=== PATIENT | male | born 1995 | race Hispanic/Latino ===

== ENCOUNTER 2019-03-18 21:24 | Emergency (ER) | payer SELFPAY ==
[2019-03-18 21:42] VITALS: BP 142/92; PULSE 120; RESP 18; TEMP 98.3; O2SAT 96
[2019-03-18] MEDS ORDERED: Lidocaine 2% Inj (20ml) INFIL ONE (21:43)
[2019-03-18] MEDS ORDERED: Lidocaine 2% w Epi 1:100,000 Inj IJ ONE (21:47)
[2019-03-18] MEDS ORDERED: Lidocaine 1% Inj (20ml) INFIL ONE (21:48)
--- NOTE | 2019-03-18 21:48 | ED PDOC ---
Upper Extremity Pain/Injury Time Seen by Provider: 03/18/19 21:42 Chief Complaint (Nursing): Finger,Hand,&Wrist Chief Complaint (Provider): Finger,Hand,&Wrist History Per: Patient History/Exam Limitations: no limitations Onset/Duration Of Symptoms: Mins Current Symptoms Are (Timing): Still Present Additional Complaint(s): 23 y/o male with no significant PMHx presents to the ED for evaluation of a right hand laceration, onset prior to arrival. Patient reports he was washing dishes when a jagged piece of glass cut his right second digit. Patient notes he was unable to control bleeding. Patient states he is right hand dominant. PMD: no provider Tetanus vaccination is greater than 5 years. Past Medical History Reviewed: Historical Data, Nursing Documentation, Vital Signs Vital Signs: Last Vital Signs Temp 98.3 F 03/18/19 21:36 Pulse 120 H 03/18/19 21:36 Resp 18 03/18/19 21:36 BP 142/92 H 03/18/19 21:36 Pulse Ox 96 03/18/19 21:36 Primary Care Provider: FAMILY PROVIDER,NO - Medical History PMH: No Chronic Diseases - Surgical History Surgical History: No Surg Hx - Family History Family History: States: No Known Family Hx - Allergies Allergies/Adverse Reactions: Allergies Allergy/AdvReac Type Severity Reaction Status Date / Time No Known Allergies Allergy Verified 03/18/19 21:38 Review of Systems ROS Statement: Except As Marked, All Systems Reviewed And Found Negative Musculoskeletal: Positive for: Hand Pain Physical Exam - Reviewed Nursing Documentation Reviewed: Yes Vital Signs Reviewed: Yes - Physical Exam Appears: Positive for: No Acute Distress Extremity: Positive for: Other (2 cm laceration on the volar surface distal phalanx. ) - ECG O2 Sat by Pulse Oximetry: 96 (RA) Pulse Ox Interpretation: Normal Procedures - Laceration/Wound Repair Right Finger Wound Length (cm): 2 Wound's Depth, Shape: linear Wound Explored: clean Anesthesia: 1% Lidocaine Wound Repaired With: Sutures Suture Size/Type: 5:0, proline Number of Sutures: 3 Wound Complexity: Simple Disposition - Clinical Impression Clinical Impression: Finger laceration - Patient ED Disposition Is Patient to be Admitted: No - Disposition Disposition: Routine/Home Disposition Time: 22:33 Condition: FAIR Additional Instructions: return in 7 to 10 days for removal of sutures. Instructions: Laceration Repair
[2019-03-18] MEDS ORDERED: Tdap Vaccine 0.5 ml Vial (10-64 yrs) IM ONE (21:50)
== END 2019-03-18 22:33 | disposition home or self-care (01) ==
LOC: H.ER 21:24
DX: S61.210A Laceration without foreign body of right index finger without damage to nail, initial encounter (principal); W25.XXXA Contact with sharp glass, initial encounter; Y93.G1 Activity, food preparation and clean up